=== PATIENT | female | born 1960 | race African-American/Black ===

== ENCOUNTER 2021-07-31 12:45 | Inpatient (IN) | payer MEDICARE, OTHER ==
[~2021-07-31] VITALS: Ht 188 cm; Wt 80.3 kg
--- NOTE | 2021-07-31 13:10 | NUR ---
BIBCAREGIVER C/O CHEST PAIN THAT RADIATES TO L ARM COMPRESSING IN NATURE WITH TINGLING SENSATION.
--- NOTE | 2021-07-31 13:11 | NUR ---
[id number] NOT IN DISTRESS
--- NOTE | 2021-07-31 13:19 | NUR ---
caregiver AJ left contact # [phone]
[2021-07-31 13:26] LABS: BASOPHILS # (AUTO) 0.1 K/uL (0.0-0.2); BASOPHILS % (AUTO) 0.7 % (0.0-2.0); EOSINOPHILS % (AUTO) 1.3 % (0.0-6.0); HEMATOCRIT 35 % (33-45); LYMPHOCYTES # (AUTO) 2.9 K/uL (0.8-4.8); LYMPHOCYTES % (AUTO) 40.5 % (20.0-44.0); MEAN CORPUSCULAR HGB CONC 34 g/dl (31.0-36.0); MEAN CORPUSCULAR VOLUME 85 fL (82-100); MONOCYTES # (AUTO) 0.5 K/uL (0.1-1.30); MONOCYTES % (AUTO) 6.8 % (2.0-12.0); NEUTROPHILS # (AUTO) 3.6 K/uL (1.8-8.9); NEUTROPHILS % (AUTO) 50.7 % (43.0-81.0); PLATELET COUNT (AUTO) 211 K/uL (150-450); RED BLOOD CELL COUNT(AUTO) 4.16 MIL/uL (4.0-5.2); WHITE BLOOD COUNT (AUTO) 7.2 K/uL (4.3-11.0)
[2021-07-31 13:46] LABS: CALCIUM, SERUM 9.2 mg/dL (8.5-10.1); CARBON DIOXIDE 27 mmol/L (21-32); CHLORIDE 104 mmol/L (98-107); CREATININE 0.8 mg/dL (0.6-1.3); GLUCOSE 134 mg/dL (74-106); POTASSIUM 4.4 mmol/L (3.5-5.1); SODIUM SERUM 139 mmol/L (136-145); UREA NITROGEN, BLOOD 15 mg/dL (7-18)
--- NOTE | 2021-07-31 13:54 | NUR ---
CXR AT BS IN PROGRESS
[2021-07-31] MEDS ORDERED: FAMO20TA8 PO (14:38)
[2021-07-31] MEDS ORDERED: LINA5TAB PO (14:38)
[2021-07-31] MEDS ORDERED: QUET25TA PO (14:38)
[2021-07-31] MEDS ORDERED: MIDO10TA PO (14:38)
[2021-07-31] MEDS ORDERED: TRAZ-182 PO (14:38)
[2021-07-31] MEDS ORDERED: MULT-439 PO (14:38)
[2021-07-31] MEDS ORDERED: GABA-536 PO (14:38)
[2021-07-31] MEDS ORDERED: SENN-175 PO (14:38)
[2021-07-31] MEDS ORDERED: INSU100I26 SQ (14:38)
[2021-07-31] MEDS ORDERED: ESCI10TA PO (14:42)
--- NOTE | 2021-07-31 14:53 | NUR ---
COVID SWAB AND SENT TO LAB.
--- NOTE | 2021-07-31 15:27 | NUR ---
[facility] CALLED [facility] PAGED.
--- NOTE | 2021-07-31 15:39 | NUR ---
DR ALISIA MENDEZ ON THE PHONE WITH DR MORALEZ
[2021-07-31] MEDS ORDERED: ACETAMINOPHEN 325 MG TABLET PO PRN (16:30)
[2021-07-31] MEDS ORDERED: NITROGLYCERIN 0.4 MG/TAB BOTTLE SL PRN (16:30)
[2021-07-31] MEDS ORDERED: ONDANSETRON HCL/PF 4 MG/2 ML VIAL IVP PRN (16:30)
[2021-07-31] MEDS ORDERED: MAG HYDROX/AL HYDROX/SIMETH 30 ML UDC PO PRN (16:30)
[2021-07-31] MEDS ORDERED: DOCUSATE SODIUM 100 MG CAPSULE PO PRN (16:30)
[2021-07-31] MEDS ORDERED: MORPHINE SULFATE INJ 2 MG/ML DISP.SYRIN IV PRN (16:30)
[2021-07-31 16:49] LABS: BILIRUBIN,URINE NEGATIVE (NEGATIVE); COLOR,URINE YELLOW (YELLOW); LEUKOCYTE ESTERASE ,URINE NEGATIVE (NEGATIVE); NITRITE, URINE NEGATIVE (NEGATIVE); PROTEIN,URINE NEGATIVE (NEGATIVE); UGLUCOSE NEGATIVE (NEGATIVE); UROBILINOGEN,URINE 0.2 EU/dL (0.2)
[2021-07-31] MEDS ORDERED: DEXTROSE 50%-WATER 50 ML DISP.SYRIN IV PRN (17:00)
--- NOTE | 2021-07-31 17:04 | NUR ---
bed assigned= 328-2
[2021-07-31 18:00] VITALS: BP 130/89
[2021-07-31] MEDS: MIDODRINE HCL (5MG) 5 MG TABLET PO SCH (18:00)
--- NOTE | 2021-07-31 18:00 | NUR ---
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 PATIENT IS AWAKE, A/O X4. ON ROOM AIR TOLERATING WELL SATURATING AT 98%. NO SOB NOTED. NOT IN DISTRESS. WITH NO COMPLAINTS OF CHEST PAIN OR DISCOMFORT AT THIS TIME. ON TELE MONITOR CURRENTLY READING SINUS BRADYCARDIA AT 56BPM. WITH IV ACCESS AT RIGHT AC G20 SALINE LOCKED, PATENT AND INTACT. SKIN IS INTACT. DUE MEDS GIVEN. BLOOD SUGAR CHECKED: 98. NO INSULIN GIVEN. SAFETY MEASURES IN PLACED. CALL LIGHT WITHIN REACH. BED ON LOWEST LOCKED POSITION, SIDE RAILS UP X2. WILL ENDORSE TO NEXT SHIFT FOR [place].
[2021-07-31] MEDS: GABAPENTIN 400 MG CAPSULE PO SCH (18:29)
[2021-07-31] MEDS: BLOOD SUGAR DIAGNOSTIC 1 EACH STRIP IN SCH ×2 (18:34→21:10)
--- NOTE | 2021-07-31 19:15 | NUR ---
TELE/RN NOTE PT AWAKE/ALERT, ABLE TO MAKE ALL NEEDS KNOWN. SHE DENIES ANY PAIN AT THIS TIME. RESPIRATIONS EVEN/UNLABORED. ON ROOM AIR. IV SITE: R-AC #20G INTACT/PATENT/FLUSHES WELL. AMBULATES TO BR WITH WALKER. PT IN NO ACUTE DISTRESS. SAFETY MEASURES IN PLACE. WILL CONT TO MONITOR.
[2021-07-31 20:00] VITALS: BP 130/63
[2021-07-31] MEDS: INSULIN REGULAR, HUMAN 100 UNIT/ML 3 ML VIAL SQ PRN (21:12)
[2021-07-31] MEDS: INSULIN GLARGINE, 100 UNIT/ML CARTRIDGE SQ SCH (21:13)
[2021-07-31] MEDS: SIMVASTATIN 20 MG TABLET PO SCH (21:16)
[2021-07-31] MEDS: QUETIAPINE FUMARATE 25 MG TABLET PO SCH (21:16)
[2021-07-31] MEDS: SENNOSIDES 8.6 MG TABLET PO SCH (21:16)
[2021-07-31] MEDS: TRAZODONE 50 MG TABLET PO SCH (21:16)
[2021-08-01] VITALS: BP 111/60
[2021-08-01 04:00] VITALS: BP 115/60
[2021-08-01] MEDS: BLOOD SUGAR DIAGNOSTIC 1 EACH STRIP IN SCH ×4 (06:36→21:46)
[2021-08-01] MEDS: INSULIN REGULAR, HUMAN 100 UNIT/ML 3 ML VIAL SQ PRN ×2 (06:39→17:42)
--- NOTE | 2021-08-01 06:53 | NUR ---
TELE/RN NOTE PT RESTING IN BED, EASILY AROUSABLE, DENIES ANY PAIN OR DISCOMFORT AT THIS TIME. NO SOB. PT SLEPT WELL DURING THE NIGHT. TELE MONITOR READING SB, HR 58. PT IN NO ACUTE DISTRESS. SAFETY MEASURES MAINTAINED.
[2021-08-01 07:25] LABS: ALBUMIN 3.3 g/dL (3.4-5.0); BILIRUBIN,TOTAL 0.3 mg/dL (0.2-1.0); CALCIUM, SERUM 8.7 mg/dL (8.5-10.1); CREATININE 0.8 mg/dL (0.6-1.3); TOTAL PROTEIN, SERUM 6.7 g/dL (6.4-8.2)
--- NOTE | 2021-08-01 07:30 | NUR ---
ms rn received on bed, awake,alert,oriented x4,not in any form of distress, respirations even and unlabored,no sob noted, lungs are clear,abdomen soft,positive bowel sounds,denies pain at this time, will monitor patient.
[2021-08-01 07:58] LABS: BASOPHILS % (AUTO) 0.7 % (0.0-2.0); EOSINOPHILS % (AUTO) 1.9 % (0.0-6.0); HEMATOCRIT 34 % (33-45); HEMOGLOBIN 11.3 g/dL (11.5-14.8); LYMPHOCYTES % (AUTO) 39.7 % (20.0-44.0); MEAN CORPUSCULAR HGB CONC 34 g/dl (31.0-36.0); MEAN CORPUSCULAR VOLUME 86 fL (82-100); MONOCYTES # (AUTO) 0.4 K/uL (0.1-1.30); MONOCYTES % (AUTO) 7.2 % (2.0-12.0); NEUTROPHILS # (AUTO) 2.6 K/uL (1.8-8.9); NEUTROPHILS % (AUTO) 50.5 % (43.0-81.0); PLATELET COUNT (AUTO) 193 K/uL (150-450); RED BLOOD CELL COUNT(AUTO) 3.93 MIL/uL (4.0-5.2); WHITE BLOOD COUNT (AUTO) 5.1 K/uL (4.3-11.0)
[2021-08-01 08:00] VITALS: BP 116/62
[2021-08-01 08:04] LABS: THYROID STIMULATING HORMONE 0.538 uIU/mL (0.358-3.74)
[2021-08-01 08:23] LABS: MAGNESIUM 1.6 mg/dL (1.8-2.4); PHOSPHORUS 4.5 mg/dL (2.5-4.9)
[2021-08-01] MEDS: ESCITALOPRAM OXALATE (10 MG) 10 MG TABLET PO SCH (08:51)
[2021-08-01] MEDS: GABAPENTIN 400 MG CAPSULE PO SCH ×3 (08:51→17:40)
[2021-08-01] MEDS: FAMOTIDINE (20 MG) 20 MG TABLET PO SCH (08:52)
[2021-08-01] MEDS: ASPIRIN 81 MG TAB.CHEW PO SCH (08:52)
[2021-08-01] MEDS: MIDODRINE HCL (5MG) 5 MG TABLET PO SCH ×2 (08:52→17:40)
[2021-08-01] MEDS: LINAGLIPTIN 5 MG TABLET PO SCH (08:52)
[2021-08-01] MEDS: MULTIVIT W/MINERALS 1 TAB TABLET PO SCH (08:52)
[2021-08-01] MEDS ORDERED: ATORVASTATIN 10 MG TABLET PO SCH (09:00)
--- NOTE | 2021-08-01 09:10 | NUR ---
ms stone breakfast served,due meds given,tolerated well.
[2021-08-01 09:11] LABS: IRON, SERUM 53 ug/dl (50-175); TOTAL IRON BINDING CAPACITY 219 ug/dl (250-450)
[2021-08-01 09:24] LABS: CHOLESTEROL 168 mg/dL (<200); FERRITIN 107 ng/mL (8-388); HDL CHOLESTEROL 30 mg/dL (40-60); LDL 87 mg/dL (0-99); TRIGLYCERIDES 237 mg/dL (30-150)
--- NOTE | 2021-08-01 09:30 | NUR ---
ms rn was seen by dr. john lopes/ orders made and carried out.
[2021-08-01] MEDS ORDERED: MAGNESIUM OXIDE 400 MG TABLET PO ONE (10:00)
[2021-08-01 12:00] VITALS: BP 112/62
[2021-08-01] MEDS ORDERED: Z GUARD REMEDY 4 OZ OINT TP PRN (12:00)
--- NOTE | 2021-08-01 12:30 | NUR ---
ms rn bs - 173- pt refused coverage,no s/s of hyperglycemia noted.
[2021-08-01] MEDS ORDERED: CT SWABBABLE VALVE TRANS SET 1 EA INFUS.SET MC ONE (13:06)
[2021-08-01] MEDS ORDERED: IV NS 0.9% 250 ML IV ONE (13:06)
[2021-08-01] MEDS ORDERED: IOHEXOL-350 100 ML VIAL IV ONE (13:06)
[2021-08-01] MEDS ORDERED: NITROGLYCERIN 0.4 MG/TAB BOTTLE ONE (13:06)
[2021-08-01] MEDS ORDERED: METOPROLOL TARTRATE INJ 5 MG/5 ML AMPUL ONE (13:15)
[2021-08-01] MEDS ORDERED: METOPROLOL TARTRATE INJ 5 MG/5 ML AMPUL IVP PRN (13:30)
[2021-08-01] MEDS ORDERED: NITROGLYCERIN 0.4 MG/TAB BOTTLE SL PRN (13:30)
--- NOTE | 2021-08-01 14:00 | NUR ---
ms rn ct angio done w/ negative result, patient to be d/c in am,not today.
[2021-08-01 16:00] VITALS: BP 126/53
[2021-08-01] MEDS: Z GUARD REMEDY 4 OZ OINT TP SCH (17:07)
--- NOTE | 2021-08-01 17:30 | NUR ---
ms stone b/s 149-2 units of insulin given via sq
--- NOTE | 2021-08-01 18:00 | NUR ---
ms rn on bed,no distress noted,all needs attended.
--- NOTE | 2021-08-01 19:45 | NUR ---
MS RN OPENING NOTES RECEIVED PATIENT LYING IN BED, ASLEEP. EASY TO AROUSE. A/O X4. NO C/O PAIN AT THIS TIME. RESPIRATION EVEN AND UNLABORED. HAS LEFT AC IV ACCESS #20G SALINE LOCK. INTACT, PATENT AND FLUSHING. SAFETY PRECAUTIONS IN PLACE. WILL CONTINUE PLAN OF CARE.
[2021-08-01 20:00] VITALS: BP 133/67
[2021-08-01] MEDS: QUETIAPINE FUMARATE 25 MG TABLET PO SCH (21:58)
[2021-08-01] MEDS: TRAZODONE 50 MG TABLET PO SCH (21:58)
[2021-08-01] MEDS: SENNOSIDES 8.6 MG TABLET PO SCH (21:58)
[2021-08-01] MEDS: SIMVASTATIN 20 MG TABLET PO SCH (22:05)
[2021-08-01] MEDS: INSULIN GLARGINE, 100 UNIT/ML CARTRIDGE SQ SCH (22:06)
[2021-08-02] MEDS: BLOOD SUGAR DIAGNOSTIC 1 EACH STRIP IN SCH (06:43)
[2021-08-02] MEDS: INSULIN REGULAR, HUMAN 100 UNIT/ML 3 ML VIAL SQ PRN (06:48)
--- NOTE | 2021-08-02 06:53 | NUR ---
MS RN CLOSING NOTES PATIENT LYING IN BED, ASLEEP. WHOLE BODY COVERED WITH BLANKET. RESPONSIVE TO VERBAL AND TACTILE STIMULI. A/O X4. NO APPARENT DISTRESS NOTED. STABLE ON ROOM AIR. NO C/O PAIN AT THIS TIME. HAS LEFT AC IV ACCESS #20G SALINE LOCK. INTACT, PATENT AND FLUSHING. BLOOD SUGAR 137, ADMINISTERED 2 UNITS REGULAR INSULIN. SAFETY PRECAUTIONS IN PLACE: BED LOCK AND LOW, SIDE RAILS UP X2, CALL LIGHT WITHIN REACH.
[2021-08-02 07:08] LABS: BASOPHILS % (AUTO) 0.4 % (0.0-2.0); EOSINOPHILS % (AUTO) 2.2 % (0.0-6.0); HEMATOCRIT 36 % (33-45); HEMOGLOBIN 12.1 g/dL (11.5-14.8); LYMPHOCYTES # (AUTO) 2.7 K/uL (0.8-4.8); LYMPHOCYTES % (AUTO) 43.4 % (20.0-44.0); MEAN CORPUSCULAR HGB CONC 34 g/dl (31.0-36.0); MEAN CORPUSCULAR VOLUME 86 fL (82-100); MONOCYTES # (AUTO) 0.4 K/uL (0.1-1.30); MONOCYTES % (AUTO) 6.9 % (2.0-12.0); NEUTROPHILS # (AUTO) 2.9 K/uL (1.8-8.9); NEUTROPHILS % (AUTO) 47.1 % (43.0-81.0); PLATELET COUNT (AUTO) 221 K/uL (150-450); WHITE BLOOD COUNT (AUTO) 6.2 K/uL (4.3-11.0)
[2021-08-02 07:22] LABS: CREATININE 0.9 mg/dL (0.6-1.3); PHOSPHORUS 4.3 mg/dL (2.5-4.9); POTASSIUM 4.1 mmol/L (3.5-5.1)
--- NOTE | 2021-08-02 07:28 | NUR ---
ms rn receivve on bed, awake,alert,oriented x4,not in any form of distress ,respirations even and unlabored,no sob noted. lungs are clear,abdomen soft,positive bowel sounds,denies pain at this time,all needs attended.
[2021-08-02] MEDS: ASPIRIN 81 MG TAB.CHEW PO SCH (08:48)
[2021-08-02] MEDS: FAMOTIDINE (20 MG) 20 MG TABLET PO SCH (08:48)
[2021-08-02] MEDS: ESCITALOPRAM OXALATE (10 MG) 10 MG TABLET PO SCH (08:48)
[2021-08-02] MEDS: LINAGLIPTIN 5 MG TABLET PO SCH (08:48)
[2021-08-02] MEDS: GABAPENTIN 400 MG CAPSULE PO SCH (08:48)
[2021-08-02] MEDS: MULTIVIT W/MINERALS 1 TAB TABLET PO SCH (08:48)
[2021-08-02 08:49] VITALS: BP 113/56
[2021-08-02] MEDS: MIDODRINE HCL (5MG) 5 MG TABLET PO SCH (08:49)
[2021-08-02] MEDS: Z GUARD REMEDY 4 OZ OINT TP SCH (08:52)
--- NOTE | 2021-08-02 09:00 | NUR ---
ms stone breakfast served,due meds given,tolerated well.
--- NOTE | 2021-08-02 10:00 | NUR ---
ms rn was seen by jemal lopes/ orders made, patient to go home today.
--- NOTE | 2021-08-02 11:00 | NUR ---
ms workers compensation attorney instructions given and understood, went to assisted living,all needs attended.
== END 2021-08-02 14:00 | DRG 206 ==
LOC: ER 12:55 → TELE 17:23 → MED 08-01 16:23
PROVIDERS: ADMIT Registered Nurse; ATTEND Registered Nurse
DX: M94.0 Chondrocostal junction syndrome [Tietze] (principal); I10 Essential (primary) hypertension; K21.9 Gastro-esophageal reflux disease without esophagitis; E11.9 Type 2 diabetes mellitus without complications; F32.A Depression, unspecified; Z20.822 Contact with and (suspected) exposure to COVID-19; Z98.1 Arthrodesis status; Z79.4 Long term (current) use of insulin; Z79.899 Other long term (current) drug therapy; G89.29 Other chronic pain; Z87.891 Personal history of nicotine dependence; B96.89 Other specified bacterial agents as the cause of diseases classified elsewhere; F29 Unspecified psychosis not due to a substance or known physiological condition; D64.9 Anemia, unspecified
CPT/HCPCS: 36415; 71045-TC; 75574; 80048-TC; 80053-TC; 80061-TC; 82728-TC; 82962-TC; 83540-TC; 83735-TC; 84100-TC; 84443-TC; 84484-TC; 85025-TC; 87081-TC; 93307-TC; C9803; G0378; J1815; J3490; J7050; Q9967